=== PATIENT | female | born 1995 | race Two or more races ===

== ENCOUNTER 2025-04-12 20:14 | Emergency (ER) | payer MEDICAID, OTHER ==
[~2025-04-12] VITALS: Ht 149.9 cm; Wt 50.0 kg
[2025-04-12 21:05] VITALS: BP 125/74; PULSE 88; RESP 15; TEMP 98.8; O2SAT 98
== END 2025-04-12 21:37 | disposition left against medical advice (07) ==
LOC: EDBD 20:14 → ER 20:14
DX: R51.9 Headache, unspecified (principal); Z79.899 Other long term (current) drug therapy